=== PATIENT | male | born 1975 | race Two or more races ===

== ENCOUNTER 2018-02-11 19:53 | Emergency (ER) | payer BC, OTHER ==
[~2018-02-11] VITALS: Ht 188 cm; Wt 83.6 kg
[2018-02-11 19:54] VITALS: BP 137/77
[2018-02-11] MEDS ORDERED: LIDOCAINE-MPF 1%, 5ML ONE (20:37)
[2018-02-11] MEDS ORDERED: CEFAZOLIN 1,000 MG ONE (20:41)
[2018-02-11] MEDS ORDERED: CEFAZOLIN 1,000 MG IM ONE (21:00)
[2018-02-11] MEDS ORDERED: LIDOCAINE-MPF 1%, 5ML INFIL ONE (21:00)
== END 2018-02-11 21:43 | disposition home or self-care (01) ==
LOC: ED 21:05
DX: M71.121 Other infective bursitis, right elbow (principal)
CPT/HCPCS: 20605; 73080; 84560; 87070; 87205; 89051; 96372; 99285; J0690